=== PATIENT | male | born 1970 | race Caucasian/White ===

== ENCOUNTER 2016-07-14 12:00 | Emergency (ER) | payer OTHER ==
[~2016-07-14] VITALS: Ht 180.3 cm; Wt 76.2 kg
[2016-07-14] MEDS ORDERED: MULT1TAB18 PO (12:08)
[2016-07-14] MEDS ORDERED: MORPHINE 4 MG/ML 1ML SYRINGE IV ONE (16:45)
[2016-07-14] MEDS ORDERED: ONDANSETRON 4MG/2ML VIAL (J2405) IV ONE (16:45)
[2016-07-14 17:00] LABS: MEAN CORPUSCULAR HEMOGLOBIN 28.6 pg (27.0-33.0); MEAN CORPUSCULAR HGB CONC 34.5 g/dl (32.0-36.5); MEAN CORPUSCULAR VOLUME 82.9 fl (80.0-96.0); RED CELL DISTRIBUTION WIDTH 12.5 % (11.5-14.5); WHITE BLOOD COUNT 11.5 K/mm3 (4.0-10.0)
[2016-07-14 17:28] LABS: ALBUMIN 4.4 GM/DL (3.2-5.2); ALBUMIN/GLOBULIN RATIO 1.13 (1.00-1.93); ALKALINE PHOSPHATASE 125 U/L (45-117); ALT/SGPT 28 U/L (12-78); ANION GAP 9 MEQ/L (8-16); AST/SGOT 20 U/L (15-37); BILIRUBIN,TOTAL 0.6 MG/DL (0.2-1.0); BLOOD UREA NITROGEN 14 MG/DL (7-18); CALCIUM LEVEL 9.1 MG/DL (8.5-10.1); CARBON DIOXIDE LEVEL 24 MEQ/L (21-32); CHLORIDE LEVEL 109 MEQ/L (98-107); CREATININE FOR GFR 0.68 MG/DL (0.70-1.30); GLOMERULAR FILTRATION RATE > 60.0 (>60); GLUCOSE, FASTING 84 MG/DL (70-105); POTASSIUM SERUM 3.9 MEQ/L (3.5-5.1); SODIUM LEVEL 142 MEQ/L (136-145); TOTAL PROTEIN 8.3 GM/DL (6.4-8.2)
[2016-07-14] MEDS ORDERED: ISOVUE-370 76% 100ML VIAL (Q9967) As Ordered ONE (17:42)
[2016-07-14 18:20] VITALS: BP 152/74
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
[2016-07-14] MEDS ORDERED: FLOM5CAP PO (19:16)
[2016-07-14] MEDS ORDERED: PERC5TAB6 PO (19:16)
[2016-07-14] MEDS ORDERED: ZOFR4TAB3 PO (19:16)
== END 2016-07-14 19:26 | disposition home or self-care (01) ==
LOC: M ED 17:27
DX: S20.219A Contusion of unspecified front wall of thorax, initial encounter (principal); N20.0 Calculus of kidney; V43.52XA Car driver injured in collision with other type car in traffic accident, initial encounter; Y92.410 Unspecified street and highway as the place of occurrence of the external cause; Y93.9 Activity, unspecified; Y99.9 Unspecified external cause status; Z72.0 Tobacco use; Z79.899 Other long term (current) drug therapy
CPT/HCPCS: 71260; 74177; 80053; 85027; 96374; 96375; 99283; J2405; Q9967

== ENCOUNTER → 2016-08-07 | Day surgery (SDC) | payer OTHER ==
[~2016-08-07] VITALS: Ht 172.7 cm; Wt 76.2 kg
[~2016-08-07] MED LIST: FLOM5CAP PO; KETOROLAC 60 MG/2 ML VIAL (J1885) As Ordered ONE; LIDOCAINE 2% INJ 100 MG/5 ML SDV (FOR ANES.) As Ordered ONE; LR 1,000 ML IV SCH; MORPHINE 2 MG/ML 1ML SYRINGE IV PRN; MULT1TAB18 PO; ONDANSETRON 4MG/2ML VIAL (J2405) As Ordered ONE; ONDANSETRON 4MG/2ML VIAL (J2405) IV PRN; PERC5TAB6 PO; PERCOCET 5MG/325MG TAB As Ordered ONE; PERCOCET 5MG/325MG TAB PO PRN; PERCOCET PO; PROPOFOL 200 MG/20 ML VIAL As Ordered ONE; ZOFR4TAB3 PO
--- NOTE | 2016-08-07 08:51 | REP ---
Clinical: Right renal calculi. Technique: Single supine view of the abdomen and pelvis. Findings: Small right intrarenal calculi suggested possibly measuring up to approximately 7 mm. Evaluation of the left kidney and bilateral ureters is limited due to overlying bowel gas. No evidence for bowel obstruction. No organomegaly. Skeletal structures intact. Impression: Findings suggesting nonobstructing right renal calculi. Further urinary tract calcifications limited in evaluation. Signed by Spencer Conley MD 08/07/2016 08:43 A
[2016-08-07 09:20] VITALS: BP 162/78
--- NOTE | 2016-08-07 21:27 | RO ---
DATE OF PROCEDURE: 08/07/2016 PREOPERATIVE DIAGNOSIS: Right renal stone. POSTOPERATIVE DIAGNOSIS: Right renal stone. FINDINGS: 5 mm right renal stone, midpole. OPERATIVE PROCEDURE: Right extracorporeal shock wave lithotripsy. SURGEON: Dr. David Reno TEST LEAD: ANESTHESIA: Monitored anesthesia care (MAC). COMPLICATIONS: None. ESTIMATED BLOOD LOSS: N/A. HISTORY OF THE PRESENT ILLNESS: This is a 46-year-old male patient with a right midpole renal stone about 5 mm in diameter. He has consented for a right extracorporeal shock wave lithotripsy. DESCRIPTION OF PROCEDURE: With the patient under MAC anesthesia in supine position after finding the stone with ultrasound x-ray which was fairly easy, we gave a total of 2500 shocks with lithotripsy at a power range of 1 to 20. The first 100 shocks waves were on a level of 1 to 5. The following 100 shocks were at a level of 6 to 10. The following 100 shocks was at a level of 11 to 15 and the final 2200 shocks were at a level of 16 to 20. The patient tolerated well the procedure. He will go home with Flomax and pain medication. He will followup at [facility] in about 3 weeks to take an x-ray and see if the stone is gone. If not we will repeat a second session or third session. There were no complications during surgery.
== END | disposition home or self-care (01) ==
LOC: M SDC 05:53
PROVIDERS: ATTEND Urology
DX: N20.0 Calculus of kidney (principal); S20.211D Contusion of right front wall of thorax, subsequent encounter; Z72.0 Tobacco use
CPT/HCPCS: 50590; 74000; J0690; J1885; J2405

== ENCOUNTER → 2017-10-22 | Outpatient (CLI) | payer SELFPAY | LOC: M OUTALCOH 08:13 | DX: F12.10 Cannabis abuse, uncomplicated (principal) ==

== ENCOUNTER 2017-11-04 16:24 | Outpatient (RCR) | payer SELFPAY | END 2017-11-07 | LOC: M OUTALCOH 16:24 | DX: F12.10 Cannabis abuse, uncomplicated (principal); F17.200 Nicotine dependence, unspecified, uncomplicated ==

== ENCOUNTER 2017-11-12 16:00 | Outpatient (RCR) | payer SELFPAY | END 2017-12-08 | LOC: M OUTALCOH 11-19 16:00 | DX: F12.10 Cannabis abuse, uncomplicated (principal); F17.200 Nicotine dependence, unspecified, uncomplicated ==

== ENCOUNTER 2018-01-28 16:06 | Outpatient (RCR) | payer SELFPAY | END 2018-02-07 | LOC: M OUTALCOH 16:06 | DX: F12.10 Cannabis abuse, uncomplicated (principal); F17.200 Nicotine dependence, unspecified, uncomplicated; F10.10 Alcohol abuse, uncomplicated ==

== ENCOUNTER 2018-02-10 08:00 | Outpatient (RCR) | payer SELFPAY | END 2018-03-10 | LOC: M OUTALCOH 02-17 16:00 | DX: F12.10 Cannabis abuse, uncomplicated (principal); F17.200 Nicotine dependence, unspecified, uncomplicated; F10.10 Alcohol abuse, uncomplicated ==

== ENCOUNTER 2018-03-17 16:00 | Outpatient (RCR) | payer SELFPAY | END 2018-04-09 | LOC: M OUTALCOH 03-18 16:00 | DX: F12.10 Cannabis abuse, uncomplicated (principal); F17.200 Nicotine dependence, unspecified, uncomplicated; F10.10 Alcohol abuse, uncomplicated ==

== ENCOUNTER 2018-12-06 11:28 | Emergency (ER) | payer OTHER, SELFPAY ==
[~2018-12-06] VITALS: Ht 180.3 cm; Wt 84.1 kg
[~2018-12-06 11:28] MED LIST changes: +FLOM0.4C39 PO; -FLOM5CAP PO; -KETOROLAC 60 MG/2 ML VIAL (J1885) As Ordered ONE; -LIDOCAINE 2% INJ 100 MG/5 ML SDV (FOR ANES.) As Ordered ONE; -LR 1,000 ML IV SCH; -MORPHINE 2 MG/ML 1ML SYRINGE IV PRN; -ONDANSETRON 4MG/2ML VIAL (J2405) As Ordered ONE; -ONDANSETRON 4MG/2ML VIAL (J2405) IV PRN; +PERC5TAB12 PO; -PERC5TAB6 PO; -PERCOCET 5MG/325MG TAB As Ordered ONE; -PERCOCET 5MG/325MG TAB PO PRN; -PROPOFOL 200 MG/20 ML VIAL As Ordered ONE; +ZOFR4TAB14 PO; -ZOFR4TAB3 PO
[2018-12-06] MEDS ORDERED: IBUP-1022 (11:37)
[2018-12-06] MEDS ORDERED: DIAZ5TAB (11:37)
[2018-12-06] MEDS ORDERED: METHOCARBAMOL 500 MG TAB PO ONE (15:15)
--- NOTE | 2018-12-06 15:59 | REP ---
Clinical: Right lower quadrant with history of hernia repair. Technique: Real time shoemaker scale ultrasound examination using curved array and linear high frequency transducers. Findings: Directed ultrasound examination of the right inguinal region is unremarkable and without evidence for hernia, fluid collection, or mass. Impression: Normal right groin. No evidence for hernia or abnormality by ultrasound. Electronically Signed by Spencer Conley MD 12/06/2018 03:51 P
[2018-12-06] MEDS ORDERED: LIDO5DIS41 TOP (16:41)
[2018-12-06] MEDS ORDERED: ROBA500T PO (16:41)
[2018-12-06 16:48] VITALS: BP 173/94
== END 2018-12-06 16:50 | disposition home or self-care (01) ==
LOC: M ED 11:28
DX: S39.011A Strain of muscle, fascia and tendon of abdomen, initial encounter (principal); V49.49XA Driver injured in collision with other motor vehicles in traffic accident, initial encounter; Y92.89 Other specified places as the place of occurrence of the external cause; M62.830 Muscle spasm of back

== ENCOUNTER 2019-03-09 10:15 | Outpatient (RCR) | payer OTHER ==
[~2019-03-09 10:15] MED LIST changes: +DIAZ5TAB; +IBUP-1022; +LIDO5DIS41 TOP; +ROBA500T PO
== END 2019-03-10 | disposition home or self-care (01) ==
LOC: M PT 10:15
PROVIDERS: ATTEND Internal Medicine Pulmonary Disease
DX: M54.5 Low back pain (principal)

== ENCOUNTER → 2019-03-29 | Outpatient (CLI) | payer SELFPAY | LOC: M OUTALCOH 08:42 | PROVIDERS: ATTEND Psychiatry & Neurology Psychiatry | DX: Z03.89 Encounter for observation for other suspected diseases and conditions ruled out (principal) ==

== ENCOUNTER 2019-03-30 10:07 | Outpatient (RCR) | payer OTHER | END 2019-04-09 | LOC: M PT 10:07 | PROVIDERS: ATTEND Orthopaedic Surgery | DX: M54.5 Low back pain (principal) ==

== ENCOUNTER 2019-04-14 10:25 | Outpatient (RCR) | payer SELFPAY | END 2019-05-10 | LOC: M OUTALCOH 10:25 | PROVIDERS: ATTEND Psychiatry & Neurology Psychiatry | DX: F12.10 Cannabis abuse, uncomplicated (principal); F10.10 Alcohol abuse, uncomplicated; F17.200 Nicotine dependence, unspecified, uncomplicated ==

== ENCOUNTER 2019-05-09 11:03 | Outpatient (RCR) | payer OTHER | END 2019-05-10 | LOC: M PT 11:03 | PROVIDERS: ATTEND Internal Medicine | DX: M54.5 Low back pain (principal) ==

== ENCOUNTER 2019-06-08 10:06 | Outpatient (RCR) | payer OTHER | END 2019-06-10 | LOC: M PT 10:06 | PROVIDERS: ATTEND Internal Medicine | DX: M54.5 Low back pain (principal); M54.6 Pain in thoracic spine ==

== ENCOUNTER 2019-07-06 10:05 | Outpatient (RCR) | payer OTHER | END 2019-07-09 | LOC: M PT 10:05 | DX: Z51.89 Encounter for other specified aftercare (principal); M54.5 Low back pain; M54.6 Pain in thoracic spine ==

== ENCOUNTER → 2020-03-09 | Outpatient (CLI) | payer OTHER ==
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
== END ==
LOC: M PAIN 13:00
PROVIDERS: ATTEND Family Medicine
DX: M46.1 Sacroiliitis, not elsewhere classified (principal); F17.210 Nicotine dependence, cigarettes, uncomplicated; Z79.899 Other long term (current) drug therapy

== ENCOUNTER → 2020-03-14 | Outpatient (CLI) | payer OTHER | LOC: M LABSMTC 14:33 | PROVIDERS: ATTEND Anesthesiology | DX: Z20.828 Contact with and (suspected) exposure to other viral communicable diseases (principal) | CPT/HCPCS: C9803; U0003 ==

== ENCOUNTER → 2020-04-07 | Outpatient (CLI) | payer OTHER | LOC: M LABSMTC 11:19 | PROVIDERS: ATTEND Anesthesiology | DX: Z20.828 Contact with and (suspected) exposure to other viral communicable diseases (principal) ==

== ENCOUNTER → 2020-04-11 | Outpatient (CLI) | payer OTHER ==
[~2020-04-11] MED LIST changes: +BUPIVACAINE HCL 0.25% 30ML VIAL As Ordered ONE; +ISOVUE-M 300 61% 15ML VIAL As Ordered ONE; +LIDOCAINE 1% SDV 30ML VIAL As Ordered ONE; +NORCO, ANEXSIA 5/325MG TABLET (HYDROcodone/ACETAMINOPHEN) As Ordered ONE; +TRIAMCINOLONE ACETONIDE SUSP 40 MG/ML VIAL (J3301) As Ordered ONE; +diazePAM 5MG TABLET As Ordered ONE
--- NOTE | 2020-04-11 14:31 | REP ---
INDICATION: PAIN. Injection procedure. Procedural imaging. COMPARISON: None. TECHNIQUE: Three views 13.4 seconds of fluoroscopy time. FINDINGS: A sequence of 3 last image hold fluoroscopically obtained spot radiographs of the SI joint document needle position and contrast injection associated with injection procedure. IMPRESSION: Procedural imaging. <Electronically signed by Linwood Levy > 04/11/20 [id number]
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
== END ==
LOC: M PAIN 11:30
PROVIDERS: ATTEND Anesthesiology
DX: M46.1 Sacroiliitis, not elsewhere classified (principal); M53.3 Sacrococcygeal disorders, not elsewhere classified; F17.210 Nicotine dependence, cigarettes, uncomplicated; Z79.899 Other long term (current) drug therapy
CPT/HCPCS: G0260; J3301; Q9967

== ENCOUNTER → 2020-05-24 | Outpatient (CLI) | payer OTHER ==
[~2020-05-24] MED LIST changes: -BUPIVACAINE HCL 0.25% 30ML VIAL As Ordered ONE; -ISOVUE-M 300 61% 15ML VIAL As Ordered ONE; -LIDOCAINE 1% SDV 30ML VIAL As Ordered ONE; -NORCO, ANEXSIA 5/325MG TABLET (HYDROcodone/ACETAMINOPHEN) As Ordered ONE; -TRIAMCINOLONE ACETONIDE SUSP 40 MG/ML VIAL (J3301) As Ordered ONE; -diazePAM 5MG TABLET As Ordered ONE
== END ==
LOC: M LABSMTC 09:43
PROVIDERS: ATTEND Anesthesiology
DX: Z20.822 Contact with and (suspected) exposure to COVID-19 (principal)

== ENCOUNTER → 2020-05-29 | Outpatient (CLI) | payer OTHER ==
[~2020-05-29] MED LIST changes: +ISOVUE-M 300 61% 15ML VIAL As Ordered ONE; +LIDOCAINE 1% SDV 30ML VIAL As Ordered ONE; +NORCO, ANEXSIA 5/325MG TABLET (HYDROcodone/ACETAMINOPHEN) As Ordered ONE; +diazePAM 5MG TABLET As Ordered ONE; +methylPREDNISolone SUSP 40MG/ML 1ML VIAL (DEPO MEDROL) As Ordered ONE
--- NOTE | 2020-05-29 10:39 | REP ---
INDICATION: LUMBAR EPIDURAL STEROID INJECTION. COMPARISON: None. TECHNIQUE: C-arm view lower lumbar spine performed. FINDINGS: A needle is seen at the L5-S1 level. A small amount of contrast is injected. IMPRESSION: 6 seconds of fluoroscopy time was utilized. <Electronically signed by Lukasz Anderson > 05/29/20 1034
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
== END ==
LOC: M PAIN 08:30
PROVIDERS: ATTEND Anesthesiology
DX: M51.17 Intervertebral disc disorders with radiculopathy, lumbosacral region (principal); F17.210 Nicotine dependence, cigarettes, uncomplicated; Z79.899 Other long term (current) drug therapy
CPT/HCPCS: 62323; J1030; Q9967

== ENCOUNTER → 2020-07-12 | Outpatient (CLI) | payer OTHER ==
[~2020-07-12] MED LIST changes: -ISOVUE-M 300 61% 15ML VIAL As Ordered ONE; -LIDOCAINE 1% SDV 30ML VIAL As Ordered ONE; -NORCO, ANEXSIA 5/325MG TABLET (HYDROcodone/ACETAMINOPHEN) As Ordered ONE; -diazePAM 5MG TABLET As Ordered ONE; -methylPREDNISolone SUSP 40MG/ML 1ML VIAL (DEPO MEDROL) As Ordered ONE
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
== END ==
LOC: M PAIN 11:00
PROVIDERS: ATTEND Family Medicine
DX: G89.29 Other chronic pain (principal); M51.17 Intervertebral disc disorders with radiculopathy, lumbosacral region; F17.210 Nicotine dependence, cigarettes, uncomplicated

== ENCOUNTER 2020-08-01 11:30 | Outpatient (RCR) | payer OTHER | END 2020-08-08 | LOC: M PT 11:30 | PROVIDERS: ATTEND Family Medicine | DX: M51.17 Intervertebral disc disorders with radiculopathy, lumbosacral region (principal) ==

== ENCOUNTER → 2020-09-11 | Outpatient (CLI) | payer OTHER ==
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
== END ==
LOC: M PAIN 09:00
PROVIDERS: ATTEND Family Medicine
DX: M46.1 Sacroiliitis, not elsewhere classified (principal)

== ENCOUNTER → 2020-09-15 | Outpatient (CLI) | payer OTHER | LOC: M LABSMTC 09:47 | PROVIDERS: ATTEND Anesthesiology | DX: Z11.52 Encounter for screening for COVID-19 (principal) ==

== ENCOUNTER → 2020-09-20 | Outpatient (CLI) | payer OTHER ==
[~2020-09-20] MED LIST changes: +BUPIVACAINE HCL 0.25% 30ML VIAL As Ordered ONE; +ISOVUE-M 300 61% 15ML VIAL As Ordered ONE; +LIDOCAINE 1% SDV 30ML VIAL As Ordered ONE; +NORCO, ANEXSIA 5/325MG TABLET (HYDROcodone/ACETAMINOPHEN) As Ordered ONE; +TRIAMCINOLONE ACETONIDE SUSP 40 MG/ML VIAL (J3301) As Ordered ONE; +diazePAM 5MG TABLET As Ordered ONE
--- NOTE | 2020-09-20 17:15 | REP ---
INDICATION: RIGHT SIJ. COMPARISON: None. TECHNIQUE: Three C-arm views right sacroiliac joint. FINDINGS: A needle overlies the right sacroiliac joint. IMPRESSION: 10 seconds fluoroscopy time utilized. <Electronically signed by Lukasz Anderson > 09/20/20 2461
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
== END ==
LOC: M PAIN 10:00
PROVIDERS: ATTEND Anesthesiology
DX: M46.1 Sacroiliitis, not elsewhere classified (principal); F17.210 Nicotine dependence, cigarettes, uncomplicated; Z79.899 Other long term (current) drug therapy
CPT/HCPCS: G0260; J3301; Q9967

== ENCOUNTER → 2020-10-10 | Outpatient (CLI) | payer OTHER ==
[~2020-10-10] MED LIST changes: -BUPIVACAINE HCL 0.25% 30ML VIAL As Ordered ONE; -ISOVUE-M 300 61% 15ML VIAL As Ordered ONE; -LIDOCAINE 1% SDV 30ML VIAL As Ordered ONE; -NORCO, ANEXSIA 5/325MG TABLET (HYDROcodone/ACETAMINOPHEN) As Ordered ONE; -TRIAMCINOLONE ACETONIDE SUSP 40 MG/ML VIAL (J3301) As Ordered ONE; -diazePAM 5MG TABLET As Ordered ONE
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
== END ==
LOC: M PAIN 09:15
PROVIDERS: ATTEND Family Medicine
DX: G89.29 Other chronic pain (principal); M46.1 Sacroiliitis, not elsewhere classified; F17.210 Nicotine dependence, cigarettes, uncomplicated; Z87.442 Personal history of urinary calculi; Z79.899 Other long term (current) drug therapy

== ENCOUNTER → 2020-12-18 | Outpatient (CLI) | payer OTHER ==
--- NOTE | 2020-12-19 11:35 | REPVR ---
PROCEDURE INFORMATION: Exam: MR Lumbar Spine Without Contrast Exam date and time: 12/18/2020 9:09 AM Age: 50 years old Clinical indication: Low back pain. TECHNIQUE: Imaging protocol: Multiplanar magnetic resonance images of the lumbar spine without intravenous contrast. COMPARISON: DC FLUORO GUIDE SPINE INJECTION 05/29/2020 10:12 AM FINDINGS: Vertebrae: Unremarkable. Spinal cord: Normal signal. No cord compression. L1-L2: No significant disc disease. No significant spinal canal stenosis. No neural foraminal stenosis. L2-L3: No significant disc disease. No significant spinal canal stenosis. No neural foraminal stenosis. L3-L4: There is disc desiccation. There is mild disc bulging. There is facet arthropathy and ligamentum flavum hypertrophy. There is mild spinal canal stenosis. L4-L5: There is disc desiccation. Disc bulging extends into both neural foramen causing mild bilateral neural foraminal narrowing, right worse than left. There is facet arthropathy and ligamentum flavum hypertrophy. There is mild spinal canal stenosis. L5-S1: There is disc space narrowing and desiccation. There are moderate degenerative end plate changes at this level. There is a moderate disc bulge with a small superimposed central disc herniation. Disc bulging extends into both neural foramen causing mild bilateral neural foraminal narrowing. There is facet arthropathy and ligamentum flavum hypertrophy. Soft tissues: Unremarkable. 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 IMPRESSION: 1. Mild multilevel degenerative changes as described above. 2. 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 Given differences in technique, the appearance is unchanged from prior CT scan from 2017. Electronically signed by: Fuentes Miller On 12/19/2020 11:34:47 AM
== END ==
LOC: M PLAIMG 08:24
PROVIDERS: ATTEND Orthopaedic Surgery
DX: M54.5 Low back pain (principal)

== ENCOUNTER → 2021-01-17 | Outpatient (CLI) | payer OTHER ==
[2021-01-17 13:05] LABS: BASO % 0.5 % (0.0-1.0); EOS # 0.1 10^3/uL (0.0-0.5); EOS % 0.9 % (0.0-3.0); HEMATOCRIT 47.9 % (42.0-52.0); HEMOGLOBIN 16.3 g/dl (13.5-17.5); LYMPH # 2.4 10^3/uL (1.5-5.0); LYMPH % 31.6 % (24.0-44.0); MEAN CORPUSCULAR HEMOGLOBIN 28.5 pg (27.0-33.0); MEAN CORPUSCULAR VOLUME 83.7 fl (80.0-96.0); MONO # 0.6 10^3/uL (0.0-0.8); MONO % 7.4 % (2.0-8.0); NEUTROPHILS # 4.6 10^3/uL (1.5-8.5); NEUTROPHILS % 59.1 % (36.0-66.0); PLATELET COUNT, AUTOMATED 281 10^3/uL (150-450); RED BLOOD COUNT 5.72 10^6/uL (4.30-6.10); WHITE BLOOD COUNT 7.7 10^3/uL (4.0-10.0)
[2021-01-17 13:24] LABS: INR 0.94
[2021-01-17 13:25] LABS: PARTIAL THROMBOPLASTIN TIME 29.2 SECONDS (25.9-37.0)
[2021-01-17 13:59] LABS: BLOOD UREA NITROGEN 12 MG/DL (7-18); CALCIUM LEVEL 9.1 MG/DL (8.5-10.1); CARBON DIOXIDE LEVEL 27 MEQ/L (21-32); CHLORIDE LEVEL 110 MEQ/L (98-107); CREATININE FOR GFR 0.77 MG/DL (0.70-1.30); GLOMERULAR FILTRATION RATE > 60.0 (>56); GLUCOSE, FASTING 104 MG/DL (70-100); NT-PRO BNP 84 PG/ML (<125); POTASSIUM SERUM 4.2 MEQ/L (3.5-5.1); SODIUM LEVEL 139 MEQ/L (136-145)
== END ==
LOC: M PLALAB 11:45
PROVIDERS: ATTEND Student in an Organized Health Care Education/Training Program
DX: Z01.818 Encounter for other preprocedural examination (principal)